=== PATIENT | male | born 1970 | race Two or more races ===

== ENCOUNTER 2022-02-25 19:40 | Inpatient (IN) | payer MEDICAID, OTHER ==
[~2022-02-25] VITALS: Ht 182.9 cm; Wt 106.0 kg
[2022-02-25] MEDS ORDERED: fentaNYL CITRATE 100 MCG/2 ML VL IV ONE (20:45)
[2022-02-25] MEDS ORDERED: ONDANSETRON HCL 4 MG/2 ML VIAL IV ONE (20:45)
[2022-02-25] MEDS ORDERED: SODIUM CHLORIDE 0.9% 1,000 ML IV ONE (20:45)
[2022-02-25 21:22] LABS: Basophils # (auto) 0 10 ^3/uL (0-0.2); Basophils % (auto) 0.5 % (0.0-2.0); Eosinophils # (auto) 0 10 ^3/uL (0-0.8); Monocytes # (auto) 0.2 10 ^3/uL (0-1.3)
[2022-02-25 21:24] LABS: Eosinophils % (auto) 0.2 % (0.0-7.0); Hematocrit 39.9 % (41.0-53.0); Hemoglobin 12.8 g/dL (13.5-17.5); Lymphocytes # (auto) 0.5 10 ^3/uL (0.4-5.4); Lymphocytes % (auto) 9.3 % (10.0-50.0); Mean Corpuscular Hemoglobin 22.9 pg (28.0-32.0); Mean Corpuscular Hgb Conc. 32.1 g/dL (32.0-36.0); Mean Corpuscular Volume 71.4 fL (80.0-100.0); Monocytes % (auto) 3.2 % (0.0-12.0); Neutrophils # (auto) 4.4 10 ^3/uL (1.6-8.6); Neutrophils % (auto) 86.8 % (37.0-80.0); Nucleated Red Blood Cells % 0.1 %
[2022-02-25 21:25] LABS: Red Cell Distribution Width 24.7 % (11.8-14.3)
[2022-02-25 21:47] LABS: Albumin 4.4 g/dL (3.4-5.0); BUN/Creatinine Ratio 10.7; Calcium 9.4 mg/dL (8.5-10.1); Potassium 3.4 mmol/L (3.5-5.1)
[2022-02-25 21:49] LABS: Bilirubin, Total 1.2 mg/dL (0.2-1.0); Total Protein 8.2 g/dL (6.4-8.2)
[2022-02-26] MEDS ORDERED: HYDR1TAB97 PO (03:08)
[2022-02-26] MEDS ORDERED: DOCUSATE SOD 100 MG CAP PO PRN (11:15)
[2022-02-26] MEDS ORDERED: ONDANSETRON HCL 4 MG/2 ML VIAL IV PRN (11:15)
[2022-02-26] MEDS: SODIUM CHLORIDE 0.9% 1,000 ML IV SCH ×2 (12:14→23:50)
[2022-02-26] MEDS: MORPHINE SULFATE INJ 2 MG/ml SYRG IV PRN (12:14)
[2022-02-26 16:12] LABS: INR 1.34 (0.9-1.15)
[2022-02-26] MEDS: POTASSIUM CHL 20 Meq TABLET PO SCH (16:17)
[2022-02-26 22:45] VITALS: BP 135/83
[2022-02-26 23:07] VITALS: BP 135/83
[2022-02-27] MEDS: SODIUM CHLORIDE 0.9% 1,000 ML IV SCH (04:22)
[2022-02-27 05:00] VITALS: BP 113/61
[2022-02-27 05:10] LABS: Basophils # (auto) 0 10 ^3/uL (0-0.2); Basophils % (auto) 0.3 % (0.0-2.0); Lymphocytes # (auto) 0.8 10 ^3/uL (0.4-5.4); Monocytes # (auto) 0.7 10 ^3/uL (0-1.3); Nucleated Red Blood Cells % 0.1 %; White Blood Cell 6.3 10^3/uL (4.4-10.8)
[2022-02-27 05:12] LABS: Eosinophils # (auto) 0.2 10 ^3/uL (0-0.8); Eosinophils % (auto) 2.5 % (0.0-7.0); Hematocrit 39.8 % (41.0-53.0); Hemoglobin 12.1 g/dL (13.5-17.5); Lymphocytes % (auto) 12.4 % (10.0-50.0); Mean Corpuscular Hgb Conc. 30.5 g/dL (32.0-36.0); Mean Corpuscular Volume 72.2 fL (80.0-100.0); Monocytes % (auto) 10.9 % (0.0-12.0); Neutrophils # (auto) 4.7 10 ^3/uL (1.6-8.6); Neutrophils % (auto) 73.9 % (37.0-80.0); Red Blood Cells 5.51 10^6/uL (4.5-5.90)
[2022-02-27 05:28] LABS: Albumin 3.4 g/dL (3.4-5.0); BUN/Creatinine Ratio 17.1; Calcium 8.5 mg/dL (8.5-10.1); Potassium 3.5 mmol/L (3.5-5.1)
[2022-02-27 05:30] LABS: Bilirubin, Total 1.2 mg/dL (0.2-1.0); Total Protein 6.8 g/dL (6.4-8.2)
[2022-02-27 06:48] LABS: Red Cell Distribution Width 25.4 % (11.8-14.3)
[2022-02-27 08:00] VITALS: BP 121/69
[2022-02-27 08:10] VITALS: BP 121/69
[2022-02-27] MEDS ORDERED: ceFAZolin 1GM/50ML 100 ML IV ONE (09:44)
[2022-02-27] MEDS ORDERED: fentaNYL CITRATE 100 MCG/2 ML VL ONE (09:50)
[2022-02-27] MEDS ORDERED: MIDAZOLAM HCL 2MG/2ML 2ml VIAL (1mg/ml) ONE (09:50)
[2022-02-27] MEDS ORDERED: ONDANSETRON HCL 4 MG/2 ML VIAL ONE (09:52)
[2022-02-27] MEDS ORDERED: LIDOCAINE 2% (LOCAL ANESTH.) PF 5ml SDV ONE (09:52)
[2022-02-27] MEDS ORDERED: PROPOFOL 10 MG/ML 20 ML IV ONE ×2 (09:52→11:07)
[2022-02-27] MEDS ORDERED: PANTOPRAZOLE 40 MG/10 ML VIAL INJ IV SCH (10:00)
[2022-02-27] MEDS ORDERED: BUPIVACAINE W/ EPINEPH 0.25% INJ 50ML MDV ONE (10:13)
[2022-02-27] MEDS ORDERED: ePHEDrine SULFATE 50 MG/ML AMP ONE (10:33)
[2022-02-27] MEDS ORDERED: ONDANSETRON HCL 4 MG/2 ML VIAL IV PRN ×2 (11:00)
[2022-02-27] MEDS ORDERED: HYDROmorphone HCL 2 MG/ML VL/or syr IV PRN ×3 (11:00)
[2022-02-27] MEDS: POTASSIUM CHL 20 Meq TABLET PO SCH (13:33)
[2022-02-27] MEDS: MORPHINE SULFATE INJ 2 MG/ml SYRG IV PRN ×2 (15:20→20:03)
[2022-02-27 16:00] VITALS: BP 117/66
[2022-02-27] MEDS: POTASSIUM CHLORIDE 20 MEQ in D5W/LACTATED RINGERS 1,000 ML IV SCH (16:10)
[2022-02-27 22:00] VITALS: BP 114/63
[2022-02-28] MEDS: POTASSIUM CHLORIDE 20 MEQ in D5W/LACTATED RINGERS 1,000 ML IV SCH ×3 (01:09→16:38)
[2022-02-28 05:00] VITALS: BP 102/68
[2022-02-28] MEDS: MORPHINE SULFATE INJ 2 MG/ml SYRG IV PRN ×4 (05:58→19:54)
[2022-02-28 08:00] VITALS: BP 108/64
[2022-02-28 09:00] VITALS: BP 108/64
[2022-02-28] MEDS ORDERED: THIAMINE HCL 100 MG TAB PO ONE (10:00)
[2022-02-28] MEDS: POTASSIUM CHL 20 Meq TABLET PO SCH (10:32)
[2022-02-28] MEDS: THIAMINE HCL 100 MG TAB PO SCH (10:33)
[2022-02-28] MEDS: PANTOPRAZOLE 40 MG TAB PO SCH (10:33)
[2022-02-28 12:37] VITALS: BP 108/71
[2022-02-28 17:00] VITALS: BP 128/70
[2022-02-28 17:44] LABS: Urine Bacteria NONE SEEN /hpf (None Seen); Urine Blood Negative /uL (Negative); Urine Mucus FEW (None Seen); Urine Specific Gravity 1.014 (1.001-1.035); Urine WBC 3 /hpf (0 - 3)
[2022-02-28 21:44] VITALS: BP 109/62
[2022-03-01 05:01] VITALS: BP 121/72
[2022-03-01] MEDS: MORPHINE SULFATE INJ 2 MG/ml SYRG IV PRN ×2 (06:34→22:24)
[2022-03-01 08:00] VITALS: BP 106/63
[2022-03-01] MEDS: THIAMINE HCL 100 MG TAB PO SCH (09:52)
[2022-03-01] MEDS: POTASSIUM CHL 20 Meq TABLET PO SCH (09:52)
[2022-03-01] MEDS: PANTOPRAZOLE 40 MG TAB PO SCH (09:53)
[2022-03-01 12:00] VITALS: BP 117/72
[2022-03-01] MEDS: POTASSIUM CHLORIDE 20 MEQ in D5W/LACTATED RINGERS 1,000 ML IV SCH (14:46)
[2022-03-01 16:00] VITALS: BP 101/61
[2022-03-01] MEDS: HYDROcodone-ACET 5/325MG TAB PO PRN (20:17)
[2022-03-01 21:46] VITALS: BP 103/65
[2022-03-02 05:00] VITALS: BP 95/55
[2022-03-02] MEDS: HYDROcodone-ACET 5/325MG TAB PO PRN (05:19)
[2022-03-02] MEDS: POTASSIUM CHLORIDE 20 MEQ in D5W/LACTATED RINGERS 1,000 ML IV SCH ×2 (05:20→17:15)
[2022-03-02 08:00] VITALS: BP 103/63
[2022-03-02] MEDS: POTASSIUM CHL 20 Meq TABLET PO SCH (09:29)
[2022-03-02] MEDS: THIAMINE HCL 100 MG TAB PO SCH (09:29)
[2022-03-02] MEDS: PANTOPRAZOLE 40 MG TAB PO SCH (09:29)
[2022-03-02 12:00] VITALS: BP 115/70
[2022-03-02 16:00] VITALS: BP 126/80
[2022-03-02] MEDS ORDERED: ACAM1TAB4 OR (17:17)
[2022-03-02 17:27] VITALS: BP 126/80
== END 2022-03-02 18:02 | disposition home or self-care (01) | DRG 228 ==
LOC: ER 19:40 → OVERFLOW 02-26 11:12 → CENTRAL 02-26 22:30
PROVIDERS: ADMIT Nurse Practitioner Family; ATTEND Student in an Organized Health Care Education/Training Program
PROC: 0YQ50ZZ Repair Right Inguinal Region, Open Approach (ICD-10-PCS; principal; 2022-02-27 09:55)
DX: K40.30 Unilateral inguinal hernia, with obstruction, without gangrene, not specified as recurrent (principal); E66.9 Obesity, unspecified; E87.6 Hypokalemia; Q53.10 Unspecified undescended testicle, unilateral; F10.10 Alcohol abuse, uncomplicated; K57.30 Diverticulosis of large intestine without perforation or abscess without bleeding; Z20.822 Contact with and (suspected) exposure to COVID-19; K70.30 Alcoholic cirrhosis of liver without ascites; Z68.32 Body mass index [BMI] 32.0-32.9, adult
CPT/HCPCS: 36415; 74176; 80053; 80320; 81001; 83605; 83690; 84484; 85025; 85610; 87426; 93005; 96361; 96374; 96375; C9113; G0378; J0690; J2001; J2250; J2405; J2704